=== PATIENT | female | born 1960 | race Caucasian/White ===

== ENCOUNTER 2016-05-12 12:56 | Day surgery (SDC) | payer OTHER ==
[~2016-05-12 12:56] MED LIST: BIOT5000 PO; CLAR10TA7 PO; CO Q30CA PO; FOSI20 PO; HYDR-2768 PO; PROT40TA PO; TAB-TAB PO; TUMS500C PO; VITA100017 PO
[2016-05-12 13:40] VITALS: BP 153/79; PULSE 72; RESP 16; TEMP 97.7; O2SAT 100
[2016-05-12] MEDS ORDERED: SODIUM BICARBONATE 8.4% INJ 50 ML ONE (15:31)
[2016-05-12] MEDS ORDERED: LIDOCAINE HCL 1% 30 ML VIAL ONE (15:31)
--- NOTE | 2016-05-12 15:53 | RADRPT ---
EXAM DATE/TIME: 05/12/2016 13:38 [place] COMPARISON: No previous studies available for comparison. EXTERNAL COMPARISON : [facility], US THYROID, May 05, 2016 INDICATIONS : Right thyroid nodule. MEDICAL HISTORY : Gastroesophageal reflux disease. SURGICAL HISTORY : Breast augmentation. LEEP. Left knee arthroscopy. ENCOUNTER: Initial ACUITY: 1 day PAIN SCORE: 0/10 LOCATION: Right thyroid. ORGAN: Right thyroid lobe SPECIMENS: Three fine needle aspirate(s) submitted for pathologic evaluation. DEVICE: 22 gauge needle Post procedure scanning reveals no hematoma or other complication. The possibility does exist that the tissue obtained will be non-diagnostic. If the sample is non-diag nostic, a repeat biopsy or surgical biopsy may need to be performed. TECHNIQUE: 1. Ultrasound guidance for needle biopsy. 2. Needle biopsy. The risks, benefits, and alternatives to ultrasound guided needle biopsy were explained to the patien t in detail including the risk of bleeding and infection. Written and verbal informed consent was ob tained. With the patient on the ultrasound table, images were obtained. Overlying skin was prepped and drape d in the usual sterile fashion and Lidocaine was utilized as a local anesthetic. Under direct ultrasound visualization 3 separate aspirates were obtained of the dominant nodule right lobe of the thyroid. The patient tolerated the procedure well and left the ultrasound suite in stable condition. CONCLUSION: Uncomplicated ultrasound guided needle biopsy. Edgardo Carter MD FACR on May 12, 2016 at 15:51 Board Certified Radiologist. This report was verified electronically.
== END 2016-05-12 15:00 | disposition home or self-care (01) ==
LOC: HRAD 12:56 → HRIP 12:57 → HRAD 15:00
PROVIDERS: ATTEND Family Medicine
DX: E04.1 Nontoxic single thyroid nodule (principal); K21.9 Gastro-esophageal reflux disease without esophagitis
CPT/HCPCS: 10022; 76942; 88172; 88173

== ENCOUNTER → 2016-12-31 | Outpatient (CLI) | payer OTHER ==
[2016-12-31 07:03] LABS: HEMATOCRIT 39.6 % (35.0-46.0); MEAN CELL VOLUME 98.8 FL (80.0-100.0); MEAN CORPUSCULAR HEMOGLOBIN 33.1 PG (27.0-34.0); MEAN CORPUSCULAR HGB CONC 33.5 % (32.0-36.0); PLATELET COUNT 202 TH/MM3 (150-450); RED BLOOD COUNT 4.01 MIL/MM3 (4.00-5.30); RED CELL DISTRIBUTION WIDTH 11.8 % (11.6-17.2); REVIEW FLAG FINAL; WHITE BLOOD COUNT 3.7 TH/MM3 (4.0-11.0)
[2016-12-31 07:26] LABS: ALT (GPT) 22 U/L (10-53); ANION GAP 5 MEQ/L (5-15); AST (GOT) 11 U/L (15-37); BLOOD UREA NITROGEN 22 MG/DL (7-18); CHLORIDE 104 MEQ/L (98-107); GLOMERULAR FILTRATION RATE 86 ML/MIN (>89); GLUCOSE,FASTING 99 MG/DL (74-99); POTASSIUM 4.1 MEQ/L (3.5-5.1); SODIUM (NA) 141 MEQ/L (136-145)
[2016-12-31 07:28] LABS: ALKALINE PHOSPHATASE 59 U/L (45-117); HDL CHOLESTEROL 103.6 MG/DL (40.0-60.0); LDL CHOLESTEROL 95 MG/DL (0-99); TOTAL BILIRUBIN ADULT 0.7 MG/DL (0.2-1.0)
[2016-12-31 07:35] LABS: FREE T4 0.87 NG/DL (0.76-1.46)
== END ==
LOC: CLAB 06:34
PROVIDERS: ATTEND Internal Medicine Endocrinology, Diabetes & Metabolism
DX: I10 Essential (primary) hypertension (principal); K21.9 Gastro-esophageal reflux disease without esophagitis; E04.1 Nontoxic single thyroid nodule; Z91.09 Other allergy status, other than to drugs and biological substances
CPT/HCPCS: 36415; 80053; 80061; 84439; 84443; 85027

== ENCOUNTER → 2017-06-02 | Outpatient (CLI) | payer OTHER ==
[2017-06-02 10:20] LABS: FREE T4 0.84 NG/DL (0.76-1.46)
== END ==
LOC: PLAB 07:48
PROVIDERS: ATTEND Internal Medicine Endocrinology, Diabetes & Metabolism
DX: E04.1 Nontoxic single thyroid nodule (principal)
CPT/HCPCS: 36415; 84439; 84443

== ENCOUNTER → 2017-08-10 | Outpatient (CLI) | payer OTHER ==
[~2017-08-10] VITALS: Ht 162.6 cm; Wt 60.9 kg
[~2017-08-10] MED LIST changes: +ASCO500T PO; -BIOT5000 PO; +BIOTCAP PO; +CALC600T4 PO; +CHLORHEXIDINE GLUCONATE 2 % 1 PACK (2 CLOTHS) TOPICAL PRN; +CLAR10CA3 PO; -CLAR10TA7 PO; -CO Q30CA PO; +CREON24 PO; +DAILTAB8 PO; -FOSI20 PO; +FOSI20TA PO; -HYDR-2768 PO; +HYDR25TA5 PO; +LACTATED RINGER'S 1000 ML IV PRN; +LIDOCAINE HCL 1% PF 5 ML SYRINGE OTHER ONE; +METOPROLOL TARTRATE 25 MG TAB PO PRN; +PHENYLEPH/NS 1000 MCG/10 ML SYR IV ONE; +POVIDONE IODINE 5% (ANTISEPSIS KIT) 4 APPLICATIONS EACH NARE PRN; +PROPOFOL 200 MG/20 ML AMP IV ONE; +SODIUM CHLORID 0.9% 500 ML IV PRN; -TAB-TAB PO; -TUMS500C PO; -VITA100017 PO
--- NOTE | 2017-08-10 12:02 | GIPROC ---
[facility] [address] [facility]. [facility], [address] COLONOSCOPY PROCEDURE REPORT EXAM DATE: 08/10/2017 PATIENT NAME: Randi Best MR #: [id number] BIRTHDATE: 1960 ENDOSCOPIST: Glynn Browne MD ORDER #: [id number] GLASS LAMINATING OPERATOR: Jean Claude Barnes and Kavita Mchugh STATUS: outpatient INDICATIONS: The patient is a 57 yr old female here for a colonoscopy due to altered bowel pattern; resolved with increased fiber/metamucil. No personal or family history of colorectal neoplasia PROCEDURE PERFORMED: Colonoscopy, diagnostic MEDICATIONS: Per Anesthesia PREP QUALITY: excellent ESTIMATED BLOOD LOSS: None CONSENT: The patient understands the risks and benefits of the procedure and understands that these risks include, but are not limited to: sedation, allergic reaction, infection, perforation and/or bleeding. Alternative means of evaluation and treatment include, among others: physical exam, x-rays, and/or surgical intervention. The patient elects to proceed with this endoscopic procedure. medical equipment was checked for proper function. Hand hygiene and appropriate measures for infection prevention was taken. After the risks, benefits and alternatives of the procedure were thoroughly explained, Informed consent was verified, confirmed and timeout was successfully executed by the treatment team. A digital exam revealed no abnormalities of the rectum The Pentax [id number] endoscope was introduced through the anus and advanced to the cecum, which was identified by both the appendix and ileocecal valve. The instrument was then slowly withdrawn as the colon was fully examined. COLON FINDINGS: The colonic mucosa appeared normal. Retroflexion was performed and was normal The scope was then completely withdrawn from the patient and the procedure terminated. ADVERSE EVENTS: There were no complications. IMPRESSIONS: 1. The colonic mucosa appeared normal 2. Retroflexion was performed and was normal 3. Revealed no abnormalities of the rectum RECOMMENDATIONS: Resume prior diet/medications RECALL: Return 10 years Colonoscopy Glynn Browne MD eSigned: Glynn Browne MD 2017-08-10 12:01:[id number] cc: Lisbet Fabian M.D.
[2017-08-10 12:42] VITALS: BP 116/72; PULSE 67; RESP 18; TEMP 97.8; O2SAT 99
--- NOTE | 2017-08-10 12:57 | EKG ---
Date Performed: 08/10/2017 Time Performed: 10:53:00 PTAGE: 57 years EKG: Sinus rhythm POSSIBLE RIGHT VENTRICULAR CONDUCTION DELAY BORDERLINE ECG PREVIOUS TRACING : 09/11/2015 09.14 DOCTOR: Dean Celestin Interpretating Date/Time 08/10/2017 12:57:13
== END ==
LOC: HSDC 09:26
DX: R19.4 Change in bowel habit (principal); R94.31 Abnormal electrocardiogram [ECG] [EKG]
CPT/HCPCS: 00811; 45378; 93005; J2370

== ENCOUNTER 2017-08-22 12:47 | Emergency (ER) | payer OTHER ==
[~2017-08-22] VITALS: Ht 162.6 cm; Wt 63.0 kg
[~2017-08-22 12:47] MED LIST changes: -CHLORHEXIDINE GLUCONATE 2 % 1 PACK (2 CLOTHS) TOPICAL PRN; -LACTATED RINGER'S 1000 ML IV PRN; -LIDOCAINE HCL 1% PF 5 ML SYRINGE OTHER ONE; -METOPROLOL TARTRATE 25 MG TAB PO PRN; -PHENYLEPH/NS 1000 MCG/10 ML SYR IV ONE; -POVIDONE IODINE 5% (ANTISEPSIS KIT) 4 APPLICATIONS EACH NARE PRN; -PROPOFOL 200 MG/20 ML AMP IV ONE; -SODIUM CHLORID 0.9% 500 ML IV PRN
[2017-08-22 12:51] VITALS: BP 190/82; PULSE 85; RESP 16; TEMP 98.8; O2SAT 98
--- NOTE | 2017-08-22 13:01 | PD ---
HPI Chief Complaint: Laceration/Skin Injury Time Seen by Provider: 12:59 Travel History International Travel<30 days: No Contact w/Intl Traveler<30days: No Traveled to known affect area: No History of Present Illness HPI 57y female presents to the ED with a laceration to the right hand that occurred today. Says that she was picking up metal cabinets at work when she sustained this laceration. Patient states she was able to clean this out and control the bleeding on her own. She denies any numbness or tingling of the hand. Denies significant pain. 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 She does not know when her last tetanus vaccination was. Patient is right-handed she has no other complaints today. 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) Neurologic: No Psychiatric: No Reproductive: No Respiratory: Yes (ENVIRONMENTAL ASTHMA) Thyroid Disease: No Past Surgical History Abdominal Surgery: Yes (cholecystectomy) Body Medical Devices: BREAST IMPLANTS Cardiac Surgery: No Ear Surgery: No Endocrine Surgery: No Eye Surgery: No Genitourinary Surgery: No Gynecologic Surgery: Yes (LEEP PROCEDURE) Joint Replacement: No Oral Surgery: Yes (T&A AGE 31) Pacemaker: No Thoracic Surgery: Yes (BREAST IMPLANTS, REVISION BREAST IMPLANTS) Social History Alcohol Use: Yes (SOCIALLY) Tobacco Use: No (STOPPED 5 YEARS AGO) Substance Use: No Allergies-Medications (Allergen,Severity, Reaction): Coded Allergies: adhesive (Unverified Allergy, Intermediate, BLISTERS, 08/22/17) aspirin (Unverified Allergy, Intermediate, HIVES, 08/22/17) penicillin G (Unverified Allergy, Intermediate, HIVES/RASH, 08/22/17) diclofenac (Unverified Adverse Reaction, Intermediate, HIVES, 08/22/17) etodolac (Unverified Adverse Reaction, Intermediate, HIVES, 08/22/17) flurbiprofen (Unverified Adverse Reaction, Intermediate, HIVES, 08/22/17) ibuprofen (Unverified Adverse Reaction, Intermediate, HIVES, 08/22/17) indomethacin (Unverified Adverse Reaction, Intermediate, HIVES, 08/22/17) ketoprofen (Unverified Adverse Reaction, Intermediate, HIVES, 08/22/17) ketorolac (Unverified Adverse Reaction, Intermediate, HIVES, 08/22/17) naproxen (Unverified Adverse Reaction, Intermediate, HIVES, 08/22/17) oxaprozin (Unverified Adverse Reaction, Intermediate, HIVES, 08/22/17) Uncoded Allergies: NSAIDS (Allergy, Intermediate, HIVES, 06/09/09) Reported Meds & Prescriptions Reported Meds & Active Scripts Active Reported Lisinopril 20 Mg Tab 20 Mg PO DAILY Creon (Amylase/Lipase/Protease) 24,000-76,000-120,000 Units Cap 2 Cap PO TIDPC Claritin (Loratadine) 10 Mg Cap 10 Mg PO DAILY Hydrochlorothiazide 25 Mg Tab 25 Mg PO DAILY Review of Systems Except as stated in HPI: all other systems reviewed are Neg Physical Exam Narrative GENERAL: Well-nourished, well-developed patient. SKIN: Focused skin assessment warm/dry. Right dorsal aspect of hand over the fourth and fifth metacarpal, 1 cm linear laceration HEAD: Normocephalic. EYES: No scleral icterus. No injection or drainage. NECK: Supple, trachea midline. No JVD or lymphadenopathy. CARDIOVASCULAR: Regular rate and rhythm without murmurs, gallops, or rubs. RESPIRATORY: Breath sounds equal bilaterally. No accessory muscle use. GASTROINTESTINAL: Abdomen soft, non-tender, nondistended. MUSCULOSKELETAL: No cyanosis, or edema. BACK: Nontender without obvious deformity. No CVA tenderness. Data Data Last Documented VS Vital Signs Date Time Temp Pulse Resp B/P (MAP) Pulse Ox O2 Delivery O2 Flow Rate FiO2 08/22/17 12:51 98.8 85 16 190/82 (118) 98 Orders Orders Tetanus/Diphtheria Tox Adult (Tetanus/Di (08/22/17 13:15) Ed Discharge Order (08/22/17 13:41) MDM Medical Decision Making Medical Screen Exam Complete: Yes Emergency Medical Condition: Yes Differential Diagnosis right hand laceration, avulsion, abrasion Narrative Course 57y female presents to the ED with a laceration to the right hand that occurred today. Says that she was picking up metal cabinets at work when she sustained this laceration. Patient states she was able to clean this out and control the bleeding on her own. She denies any numbness or tingling of the hand. 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 She does not know when her last tetanus vaccination was. Patient is right-handed she has no other complaints today. Vital signs stable. Physical exam findings demonstrate a 7mm linear, clean laceration to the dorsal aspect of the hand. Bleeding controlled. This laceration is fairly superficial , however because of patient's nature of work, will perform laceration repair. Wound care advised. Suture removal in 7-10 days. Procedures Procedure Narrative LACERATION LOCATION: right hand, dorsal aspect LENGTH: right hand NUMBER OF STITCHES/QUINN: 3 5-0 Prolene REPAIR: The area of the laceration was prepped with Betadine and sterilely draped. The laceration was infiltrated with [-]. The wound was copiously irrigated and explored without evidence of foreign body, tendon injury or neurovascular injury. The wound was closed using [-]. This was a [-] layer repair. A sterile dressing was applied. The patient was advised to keep the dressing clean and dry. Patient tolerated the procedure well. Diagnosis Primary Impression: Hand laceration Qualified Codes: S61.411A - Laceration without foreign body of right hand, initial encounter Referrals: Primary Care Physician Additional Instructions: Follow up with your primary care physician within 2-3 days. If your symptoms persist or worsen, return to the emergency department. Keep area clean and dry. Change dressings daily. If bleeding starts again, applied pressure and elevate the area. If he developed increased redness, swelling, or pain return to the emergency department. suture removal in 7-10 days Disposition: 01 DISCHARGE HOME Condition: Stable Kimberlee Soria Aug 22, 2017 13:01
[2017-08-22] MEDS ORDERED: LISI-515 PO (13:08)
[2017-08-22] MEDS ORDERED: TETANUS/DIPHTHERIA TOXOID ADULT 0.5 ML VIAL IM ONE (13:15)
== END 2017-08-22 13:52 | disposition home or self-care (01) ==
LOC: PHEFT 12:47
DX: S61.411A Laceration without foreign body of right hand, initial encounter (principal); I10 Essential (primary) hypertension; W26.8XXA Contact with other sharp object(s), not elsewhere classified, initial encounter; Y99.0 Civilian activity done for income or pay; Z23 Encounter for immunization; Z88.0 Allergy status to penicillin; Z88.6 Allergy status to analgesic agent
CPT/HCPCS: 12001; 90471; 90714

== ENCOUNTER → 2017-08-31 | Outpatient (CLI) | payer OTHER ==
[~2017-08-31] MED LIST changes: -ASCO500T PO; -BIOTCAP PO; -CALC600T4 PO; -DAILTAB8 PO; -FOSI20TA PO; +LISI-515 PO; -PROT40TA PO
[2017-08-31 08:50] LABS: HEMATOCRIT 39.9 % (35.0-46.0); HEMOGLOBIN 13.9 GM/DL (11.6-15.3); MEAN CELL VOLUME 96.1 FL (80.0-100.0); MEAN CORPUSCULAR HEMOGLOBIN 33.5 PG (27.0-34.0); MEAN CORPUSCULAR HGB CONC 34.9 % (32.0-36.0); MEAN PLATELET VOLUME 9.7 FL (7.0-11.0); PLATELET COUNT 235 TH/MM3 (150-450); RED BLOOD COUNT 4.15 MIL/MM3 (4.00-5.30); RED CELL DISTRIBUTION WIDTH 11.1 % (11.6-17.2); WHITE BLOOD COUNT 4.3 TH/MM3 (4.0-11.0)
[2017-08-31 10:32] LABS: ALBUMIN 4.3 GM/DL (3.4-5.0); AST (GOT) 17 U/L (15-37); BICARBONATE 33.2 MEQ/L (21.0-32.0); BLOOD UREA NITROGEN 21 MG/DL (7-18); CALCIUM 9.7 MG/DL (8.5-10.1); CHLORIDE 103 MEQ/L (98-107); CHOLESTEROL 253 MG/DL (120-200); GLOMERULAR FILTRATION RATE 74 ML/MIN (>89); GLUCOSE,FASTING 98 MG/DL (74-99); SODIUM (NA) 142 MEQ/L (136-145); TRIGLYCERIDES 83 MG/DL (42-150)
[2017-08-31 10:41] LABS: ALKALINE PHOSPHATASE 73 U/L (45-117); ALT (GPT) 32 U/L (10-53); CHOLESTEROL/ HDL RATIO 2.67 RATIO; HDL CHOLESTEROL 94.7 MG/DL (40.0-60.0); LDL CHOLESTEROL 142 MG/DL (0-99); TOTAL BILIRUBIN ADULT 0.6 MG/DL (0.2-1.0); TOTAL PROTEIN 7.7 GM/DL (6.4-8.2)
== END ==
LOC: OLAB 07:16
PROVIDERS: ATTEND Family Medicine
DX: R10.11 Right upper quadrant pain (principal); E04.9 Nontoxic goiter, unspecified; I10 Essential (primary) hypertension; R63.4 Abnormal weight loss
CPT/HCPCS: 36415; 80053; 80061; 84439; 84443; 85027